=== PATIENT | female | born 1990 ===

== ENCOUNTER 2019-02-08 03:01 | Emergency (ER) | payer BC ==
[2019-02-08 03:29] VITALS: TEMP 98.8; O2SAT 99
[2019-02-08] MEDS ORDERED: Tdap Vaccine 0.5 ml Vial (10-64 yrs) IM ONE ×2 (03:44→05:26)
[2019-02-08] MEDS ORDERED: Lidocaine 2% w Epi 1:100,000 Inj IJ ONE (03:44)
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
[2019-02-08 05:43] VITALS: BP 122/79; PULSE 81; RESP 16
== END 2019-02-08 05:43 | disposition home or self-care (01) ==
LOC: H.ER 03:01
DX: S01.512A Laceration without foreign body of oral cavity, initial encounter (principal); W21.09XA Struck by other hit or thrown ball, initial encounter; Z23 Encounter for immunization